=== PATIENT | female | born 1950 | race Caucasian/White ===

== ENCOUNTER 2017-12-23 06:55 | Day surgery (SDC) | payer OTHER ==
[2017-12-23] MEDS: DUOVISC 1 KIT OPTH ONE ×2 (07:00→08:41)
[2017-12-23] MEDS ORDERED: BUPIVACAINE 0.25% PF 10 ML VIAL ONE (07:13)
[2017-12-23] MEDS ORDERED: TETRACAINE HCL 0.5% 2ML OPTH ONE ×2 (07:13→07:17)
[2017-12-23] MEDS ORDERED: LIDOCAINE 2% MPF 5 ML VIAL ONE (07:13)
[2017-12-23] MEDS ORDERED: CYCLOPENTOLATE 1% OPTH 2 ML ONE (07:13)
[2017-12-23] MEDS ORDERED: NA CHLORIDE 0.9% 500 ML ONE (07:13)
[2017-12-23] MEDS ORDERED: PHENYLEPHRINE 10% OPTH 5ML ONE (07:15)
[2017-12-23] MEDS ORDERED: LIDOCAINE HCL/PF 3.5% OPTH GEL ONE (07:15)
[2017-12-23] MEDS ORDERED: NS 0.9% VIAL 10 ML ONE (07:59)
[2017-12-23] MEDS ORDERED: EPINEPHRINE/PF 1 MG/ML AMP ONE (08:00)
[2017-12-23] MEDS ORDERED: BALANCED SALT IRRIG PLAIN 500 ML BTL IRR ONE (08:00)
[2017-12-23] MEDS ORDERED: LIDOCAINE 1% MPF 2 ML AMPULE ONE (08:02)
[2017-12-23] MEDS ORDERED: MOXIFLOXACIN HCL 10 DROPS/ML **OR USE OPTH ONE (08:02)
[2017-12-23] MEDS ORDERED: FENTANYL CITR 100 MCG/2 ML ONE (08:05)
[2017-12-23] MEDS ORDERED: MIDAZOLAM HCL 2 MG/2 ML INJ ONE (08:06)
--- NOTE | 2017-12-23 09:18 | P.BOP ---
Preoperative diagnosis: Nuclear sclerotic cataract OS Postoperative diagnosis: Same Primary procedure: Phacoemulsification with IOL OS Estimated blood loss: None Anesthesia: Local (Topical with anesthesia for cataract surgery) Complications: None Implants: ZCB00 +18.0 Transferred to: Other (Day surgery) Condition: Good
--- NOTE | 2017-12-23 14:22 | OP ---
Date of Procedure: 12/23/2017 Surgeon: Lorraine Gomez MD Anesthesiologist: Antonette Crowley CRNA, and Antelmo Connolly M.D. Preoperative Diagnosis: Nuclear sclerotic cataract, OS (left eye). Operation Performed: Phacoemulsification with intraocular lens implant, OS ( left eye). Anesthesia: Per cataract surgery. Complications: None. Description Of Procedure: In the operating room the patient was prepped and draped in the usual sterile fashion for ophthalmic surgery. A lid speculum was placed in the left eye. Two paracentesis sites were made superiorly and inferiorly in the limbal cornea. Viscoat was placed in the anterior chamber and a crescent blade was used to make a corneal groove and tunnel, and a keratome was used to enter the anterior chamber. Provisc was placed in the anterior chamber and a 360 degree capsulotomy was performed with a cystitome. The lens was hydrodissected with BSS and rotated freely. The lens was removed with a stop and chop technique. A 19.65 phaco CDE was used to remove the lens. Residual cortex was removed with the irrigation and aspiration. Provisc was placed in the capsular bag. A ZCB00 +18.0 diopter lens was placed in the capsular bag without complications. Irrigation and aspiration were used to remove residual viscoelastic. The paracentesis sites were hydrated with BSS. The wound and paracentesis sites were inspected and found to be watertight. Vigamox 0.07 cc was placed intracamerally at the end of the procedure. The eye was irrigated with balanced salt solution. The eye was patched with a soft cotton patch and Root metal shield. The patient was returned to day surgery in good condition. Comments: Akten was placed in the eye in Day Surgery and irrigated out of the eye with BSS in the OR. Preservative free 1% lidocaine was placed in the anterior chamber prior to Viscoat. Discharge Instructions: Ms. Chatterjee is discharged to home in good condition and is to follow up with Dr. Gomez in the morning. AIDAN/CUONG Voice ID: [id number] Report ID: [id number] DONNELL
== END 2017-12-23 09:47 | disposition home or self-care (01) ==
LOC: OR 06:55
PROVIDERS: ATTEND Ophthalmology Retina Specialist
PROC: 08RK3JZ Replacement of Left Lens with Synthetic Substitute, Percutaneous Approach (ICD-10-PCS; principal; 2017-12-23 08:30)
DX: H25.12 Age-related nuclear cataract, left eye (principal); Z83.518 Family history of other specified eye disorder; Z82.49 Family history of ischemic heart disease and other diseases of the circulatory system
CPT/HCPCS: 66984; J0171; J2001; J2250; J3010

== ENCOUNTER 2018-03-24 08:45 | Day surgery (SDC) | payer OTHER ==
[2018-03-24] MEDS ORDERED: NS 0.9% VIAL 10 ML ONE (09:04)
[2018-03-24] MEDS ORDERED: MOXIFLOXACIN HCL 10 DROPS/ML **OR USE OPTH ONE (09:05)
[2018-03-24] MEDS ORDERED: BALANCED SALT IRRIG PLAIN 500 ML BTL IRR ONE (09:05)
[2018-03-24] MEDS ORDERED: EPINEPHRINE/PF 1 MG/ML AMP ONE (09:05)
[2018-03-24] MEDS ORDERED: DUOVISC 1 KIT OPTH ONE (09:05)
[2018-03-24] MEDS ORDERED: LIDOCAINE 1% MPF 2 ML AMPULE ONE (09:05)
[2018-03-24] MEDS ORDERED: BUPIVACAINE 0.25% PF 10 ML VIAL ONE (09:09)
[2018-03-24] MEDS ORDERED: NA CHLORIDE 0.9% 500 ML ONE (09:09)
[2018-03-24] MEDS ORDERED: PHENYLEPHRINE 10% OPTH 5ML ONE (09:09)
[2018-03-24] MEDS ORDERED: LIDOCAINE HCL/PF 3.5% OPTH GEL ONE (09:09)
[2018-03-24] MEDS ORDERED: TETRACAINE HCL 0.5% 2ML OPTH ONE (09:09)
[2018-03-24] MEDS ORDERED: LIDOCAINE 2% MPF 5 ML VIAL ONE (09:09)
[2018-03-24] MEDS ORDERED: CYCLOPENTOLATE 1% OPTH 2 ML ONE (09:09)
[2018-03-24] MEDS ORDERED: PHENYLEPHRINE 10% OPTH 5ML OPTH ONE ×2 (09:23→09:28)
[2018-03-24] MEDS ORDERED: CYCLOPENTOLATE 1% OPTH 2 ML OPTH ONE ×2 (09:23→09:28)
[2018-03-24] MEDS ORDERED: FENTANYL CITR 100 MCG/2 ML ONE (10:16)
[2018-03-24] MEDS ORDERED: MIDAZOLAM HCL 2 MG/2 ML INJ ONE (10:16)
--- NOTE | 2018-03-24 11:13 | P.BOP ---
Preoperative diagnosis: Nuclear sclerotic cataract OD Postoperative diagnosis: Same Primary procedure: Phacoemulsification with IOL OD Estimated blood loss: None Anesthesia: Local (Topical with anesthesia for cataract surgery) Complications: None Implants: ZCB00 +18.0 Transferred to: Other (Day surgery) Condition: Good
--- NOTE | 2018-03-24 11:32 | OP ---
Date of Procedure: 03/24/2018 Surgeon: Lorraine Gomez MD Anesthesiologist: 1. oJsé Antonio Bernal C.R.N.A. 2. Nader Connolly M.D. Preoperative Diagnosis: Nuclear sclerotic cataract, right eye. Operation Performed: Phacoemulsification with intraocular lens implant, right eye. Anesthesia: Per cataract surgery. Complications: None. Description Of Procedure: In the operating room the patient was prepped and draped in the usual sterile fashion for ophthalmic surgery. A lid speculum was placed in the right eye. Two paracentesis sites were made superiorly and inferiorly in the limbal cornea. Viscoat was placed in the anterior chamber and a crescent blade was used to make a corneal groove and tunnel, and a keratome was used to enter the anterior chamber. Provisc was placed in the anterior chamber and a 360 degree capsulotomy was performed with a cystitome. The lens was hydrodissected with BSS and rotated freely. The lens was removed with a stop and chop technique. 18.86 phaco CDE was used to remove the lens. Residual cortex was removed with the irrigation and aspiration. Provisc was placed in the capsular bag. A ZCB00 +18.0 diopter lens was placed in the capsular bag without complications. Irrigation and aspiration was used to remove residual viscoelastic. The paracentesis sites were hydrated with BSS. The wound and paracentesis sites were inspected and found to be watertight. Vigamox 0.07 cc was placed intracamerally at the end of the procedure. The eye was irrigated with balanced salt solution. The eye was patched with a soft cotton patch and Root metal shield. The patient was returned to day surgery in good condition. Comments: Akten was placed in the eye in Day surgery and irrigated out of the eye with BSS in the OR. Preservative free 1% lidocaine was placed in the eye prior to Viscoat. Discharge Instructions: Ms. Chatterjee is discharged to home in good condition and is to follow up with Dr. Gomez in the morning. AIDAN/CUONG Voice ID: [id number] Report ID: [id number] DONNELL
== END 2018-03-24 11:43 | disposition home or self-care (01) ==
LOC: OR 08:45
PROVIDERS: ATTEND Ophthalmology Retina Specialist
PROC: 08RJ3JZ Replacement of Right Lens with Synthetic Substitute, Percutaneous Approach (ICD-10-PCS; principal; 2018-03-24 10:00)
DX: H25.11 Age-related nuclear cataract, right eye (principal); H40.031 Anatomical narrow angle, right eye; Z83.518 Family history of other specified eye disorder; Z82.49 Family history of ischemic heart disease and other diseases of the circulatory system
CPT/HCPCS: 66984; J0171; J2001; J2250; J3010

== ENCOUNTER 2023-12-08 18:24 | Emergency (ER) | payer OTHER ==
[2023-12-08 19:20] LABS: Absolute Basophils 0.1 K/uL (0-0.5); Absolute Eosinophils 0.3 K/uL (0-0.5); Absolute Lymphocytes (CBC) 2.3 K/uL (0.7-4.9); Absolute Monocytes 0.7 K/uL (0.1-1.3); Absolute Neutrophil 3.3 K/uL (1.8-8.0); Basophils % 1.4 % (0-1.3); Eosinophils % 4.7 % (0-4.4); Hematocrit 41.7 % (36.0-45.0); Hemoglobin 13.8 g/dL (12.0-15.0); MPV 8.6 fL (7.6-11.3); Monocytes % 10.7 % (3.3-12.3); Neutrophils % 49.2 % (41.7-73.7); Platelets 302 thou/uL (152-406); RBC Red Blood Cell Count 4.44 M/uL (3.86-4.86); Red Cell Distribution Width 12.8 % (12.1-15.2)
[2023-12-08 19:29] LABS: Anion Gap 7.1 mEq/L (5.0-15.0); Magnesium 2.2 mg/dL (1.6-2.4); Potassium 4.1 mEq/L (3.5-5.1); Thyroid Stimulating Hormone 1.99 uIU/mL (0.358-3.740); Troponin High Sensitivity 4.5 pg/mL (<58.9)
--- NOTE | 2023-12-08 20:04 | RAD REPORT ---
EXAM DESCRIPTION: RAD - Chest Single View - 12/08/2023 7:58 pm CLINICAL HISTORY: PALPITATIONS COMPARISON: CHEST SINGLE VIEW dated 08/07/2013; CHEST SINGLE VIEW dated 04/19/2011 FINDINGS: Lines: None. Lungs: Irregular right upper lobe nodular opacities. No acute process identified. Emphysema. Pleural: No significant pleural effusions or pneumothorax. Cardiac: The heart size is within normal limits. Mediastinum: Within normal limits. Bones: No acute fractures. Other: None IMPRESSION: No acute cardiopulmonary disease. Emphysema. Irregular right upper lobe nodular opacities. Recommend nonemergent chest CT.
--- NOTE | 2023-12-08 20:31 | ER ---
Nurse's Notes [facility] Name: Samantha Chatterjee Age: 73 yrs Sex: Female : 1950 Arrival Date: 12/08/2023 Time: 18:24 Bed 3 Private MD: Diagnosis: Palpitations;Tachycardia, unspecified Presentation: 12/07 18:34 Chief complaint: Patient states: High BP and elevated HR Since last night. Coronavirus ll1 screen: Client denies travel out of the [place] in the last 14 days. At this time, the client does not indicate any symptoms associated with coronavirus-19. Ebola Screen: Patient denies travel to an Ebola-affected area in the 21 days before illness onset. Initial Sepsis Screen: Does the patient meet any 2 criteria? No. Patient's initial sepsis screen is negative. Does the patient have a suspected source of infection? No. Patient's initial sepsis screen is negative. Risk Assessment: Do you want to hurt yourself or someone else? Patient reports no desire to harm self or others. Onset of symptoms was December 07, 2023. 18:34 Method Of Arrival: Ambulatory ll1 18:34 Acuity: CHRISTINA 2 ll1 Triage Assessment: 18:35 General: Appears uncomfortable, Behavior is calm, cooperative, appropriate for age. ll1 Pain: Denies pain. Cardiovascular: Reports chest pain, high BP. Historical: - Allergies: 18:34 No Known Allergies; ll1 - PMHx: 18:34 bleeding ulcer; ll1 - PSHx: 18:34 section; ll1 - Immunization history:: Adult Immunizations up to date. - Infectious Disease History:: Denies. - Social history:: Smoking status: Patient denies any tobacco usage or history of. Screenin:[facility] ED Fall Risk Assessment (Adult) History of falling in the last 3 months, ld1 including since admission No falls in past 3 months (0 pts). Abuse screen: Denies threats or abuse. Denies injuries from another. Abuse screen: Denies threats or abuse. Nutritional screening: No deficits noted. Tuberculosis screening: No symptoms or risk factors identified. Assessment: 18:48 General: Appears in no apparent distress. comfortable, Behavior is calm, cooperative, ld1 appropriate for age. Pain: Denies pain. Neuro: Level of Consciousness is awake, alert, obeys commands, Oriented to person, place, time, situation. Cardiovascular: Capillary refill < 3 seconds Patient's skin is warm and dry. Rhythm is sinus rhythm. Respiratory: Airway is patent Respiratory effort is even, unlabored. GI: Abdomen is round non-distended. : No signs and/or symptoms were reported regarding the genitourinary system. EENT: No signs and/or symptoms were reported regarding the EENT system. Derm: No signs and/or symptoms reported regarding the dermatologic system. 19:14 Reassessment: Patient appears in no apparent distress at this time. Patient and/or bm8 family updated on plan of care and expected duration. Pain level reassessed. Patient is alert, oriented x 3, equal unlabored respirations, skin warm/dry/pink. Patient denies pain at this time. Patient states feeling better. Patient states symptoms have improved. Cardiovascular: Heart tones S1 S2 present Capillary refill < 3 seconds Patient's skin is warm and dry. Rhythm is sinus rhythm. Respiratory: Airway is patent Respiratory effort is even, unlabored, Respiratory pattern is regular, symmetrical, Breath sounds are clear bilaterally. 20:50 Reassessment: Patient appears in no apparent distress at this time. Patient and/or bm8 family updated on plan of care and expected duration. Pain level reassessed. Patient is alert, oriented x 3, equal unlabored respirations, skin warm/dry/pink. Patient denies pain at this time. Patient states feeling better. Patient states symptoms have improved. Vital Signs: 18:34 BP 140 / 83; Pulse 109; Resp 16; Temp 98.1; Pulse Ox 97% ; Weight 58.97 kg; Height 5 ll1 ft. 6 in. ; 18:48 BP 151 / 85; Pulse 98; Resp 18; Pulse Ox 100% on R/A; ld1 19:14 BP 142 / 79; Pulse 79; Resp 20; Pulse Ox 100% ; Pain 0/10; lg3 20:50 BP 114 / 86; Pulse 87; Resp 16; Temp 98.1; Pulse Ox 100% ; Pain 0/10; bm8 18:34 Body Mass Index 20.98 (58.97 kg, 167.64 cm) ll1 19:14 Pain Scale: Adult lg3 20:50 Pain Scale: Adult bm8 [place] Coma Score: 19:14 Eye Response: spontaneous(4). Motor Response: obeys commands(6). Verbal Response: bm8 oriented(5). Total: 15. ED Course: 18:27 Patient arrived in ED. mr 18:33 Rene Messian, RN is Primary Nurse. bp 18:34 Arm band placed on Patient placed in an exam room, on a stretcher. ll1 18:35 Farzana Walters F[facility]-C [facility]. kb 18:35 Shemar South MD is Attending Physician. kb 18:35 Triage completed. ll1 18:48 Patient has correct armband on for positive identification. Placed in gown. Bed in low ld1 position. Call light in reach. Side rails up X2. black pickler on. Pulse ox on. NIBP on. Door closed. Noise minimized. Warm blanket given. 18:48 No provider procedures requiring assistance completed. ld1 18:52 Inserted saline lock: 20 gauge in right antecubital area, using aseptic technique. ld1 Blood collected. 19:14 Report received from abner orozco. bm8 19:14 IV is patent. bm8 20:00 XRAY Chest (1 view) In Process Unspecified. EDMS 20:50 Provided Education on: post er care, need to follow up with pcp/ trolley collector. bm8 20:50 IV discontinued, intact, bleeding controlled, No redness/swelling at site. Pressure bm8 dressing applied. Administered Medications: No medications were administered Medication: 18:48 VIS not applicable for this client. ld1 Outcome: 20:31 Discharge ordered by MD. kb 20:50 Discharged to home ambulatory, bm8 20:50 Condition: stable 20:50 Discharge instructions given to patient, family, Instructed on discharge instructions, follow up and referral plans. medication usage, safety practices, Demonstrated understanding of instructions, follow-up care, medications, 20:51 Patient left the ED. bm8 Signatures: Dispatcher [employer] EDMS Farzana Walters FNP-C FNP-[place] Connie Rodríguez, Reg Reg Rene Messina, RN Georgette Pfeiffer RN RN [id number] Ara Cormier RN RN ll1 Sofi Washington RN RN ld1 Wagner Garcia RN RN bm8 Corrections: (The following items were deleted from the chart) 18:34 18:34 PMHx: None; ll1 ll1 20:06 19:14 BP 92 / 142; Pulse 79bpm; Resp 20bpm; Pulse Ox 100%; Pain 0/10, Adult; bm8 lg3
--- NOTE | 2023-12-08 20:31 | EDPHYS ---
Physician Documentation [facility] Name: Samantha Chatterjee Age: 73 yrs Sex: Female : 1950 Arrival Date: 12/08/2023 Time: 18:24 Bed 3 Private MD: ED Physician Shemar South HPI: 12/07 20:36 This 73 yrs old Female presents to ER via Ambulatory with complaints of High heart kb rate, High Blood Pressure. 20:36 Patient is a 73-year-old female who presents for palpitations, elevated heart rate and kb elevated blood pressure that started last night. States her smart watch alarmed saying that she had a fast heart rate last night and then she started feeling palpitations. States she has been checking her blood pressure and heart rate throughout the day and it has been elevated. States she has a history of a bleeding ulcer many years ago that caused her to be anemic and not see only other time that she is ever had a fast heart rate. Denies history of hypertension. States only medications she takes are vitamins. Denies chest pain or shortness of breath. Historical: - Allergies: 18:34 No Known Allergies; ll1 - PMHx: 18:34 bleeding ulcer; ll1 - PSHx: 18:34 section; ll1 - Immunization history:: Adult Immunizations up to date. - Infectious Disease History:: Denies. - Social history:: Smoking status: Patient denies any tobacco usage or history of. ROS: 20:34 Constitutional: As per HPI kb Exam: 20:34 Constitutional: This is a well developed, well nourished patient who is awake, alert, kb and in no acute distress. Head/Face: Normocephalic, atraumatic. ENT: Moist Mucous membranes Cardiovascular: Tachycardic Respiratory: Respirations even and unlabored. No increased work of breathing. Talking in full sentences Abdomen/GI: Soft, non-tender. No distention Skin: Warm, dry with normal turgor. Normal color. MS/ Extremity: Pulses equal, no cyanosis. Neurovascular intact. Full, normal range of motion. Neuro: Awake and alert, GCS 15, oriented to person, place, time, and situation. Moves all extremities. Normal gait. 20:34 ECG was reviewed by the Attending Physician. Vital Signs: 18:34 BP 140 / 83; Pulse 109; Resp 16; Temp 98.1; Pulse Ox 97% ; Weight 58.97 kg; Height 5 ll1 ft. 6 in. ; 18:48 BP 151 / 85; Pulse 98; Resp 18; Pulse Ox 100% on R/A; ld1 19:14 BP 142 / 79; Pulse 79; Resp 20; Pulse Ox 100% ; Pain 0/10; lg3 20:50 BP 114 / 86; Pulse 87; Resp 16; Temp 98.1; Pulse Ox 100% ; Pain 0/10; bm8 18:34 Body Mass Index 20.98 (58.97 kg, 167.64 cm) ll1 19:14 Pain Scale: Adult lg3 20:50 Pain Scale: Adult bm8 [place] Coma Score: 19:14 Eye Response: spontaneous(4). Motor Response: obeys commands(6). Verbal Response: bm8 oriented(5). Total: 15. MDM: 18:35 Patient medically screened. kb 20:35 Differential diagnosis: Arrhythmia, anemia, abnormal electrolytes. Data reviewed: vital kb signs, nurses notes. Counseling: I had a detailed discussion with the patient and/or guardian regarding the historical points, exam findings, and any diagnostic results supporting the discharge/admit diagnosis, lab results, radiology results, the need for outpatient follow up, a orchestrator, a family practitioner, to return to the emergency department if symptoms worsen or persist or if there are any questions or concerns that arise at home. ED course: Blood pressures come down without intervention as well as heart rate. Patient has no symptoms at this time. Patient denies ever having chest pain, shortness of breath. Educated on need for follow-up with PCP or orchestrator for further evaluation. 20:42 ED course: At bedside to reassess patient. Patient remains awake, alert and at baseline kb mentation. Patient appears stable. Patient exhibits no visible signs of distress. Patient respirations even and unlabored. I discussed patient's diagnosis, differential diagnosis, expected course of illness, at home recommendations and strict return precautions. I advised patient to follow-up with PCP in 2 to 3 days. I explained all diagnostic results with the patient and answered all questions that patient had regarding the most likely diagnosis. I emphasized the need for close outpatient follow-up and care from primary care provider/specialist and went through careful and detailed return precautions with patient. Patient expressed full understanding of such and agrees with plan for discharge today. Feel patient is stable and appropriate for discharge and ongoing management of condition at home at this time.. 12/07 18:43 Order name: Basic Metabolic Panel; Complete Time: 19:31 kb 12/07 18:43 Order name: CBC with Diff; Complete Time: 19:27 kb 12/07 18:43 Order name: Magnesium; Complete Time: 19:31 kb 12/07 18:43 Order name: Troponin HS; Complete Time: 19:31 kb 12/07 18:43 Order name: TSH; Complete Time: 19:31 kb 12/07 18:43 Order name: XRAY Chest (1 view); Complete Time: 20:06 kb 12/07 18:43 Order name: Cardiac monitoring; Complete Time: 18:44 kb 12/07 18:43 Order name: EKG - Nurse/Tech; Complete Time: 18:43 kb 12/07 18:43 Order name: IV Saline Lock; Complete Time: 18:52 kb 12/07 18:43 Order name: Labs collected and sent; Complete Time: 18:52 kb 12/07 18:43 Order name: O2 Per Protocol; Complete Time: 18:43 kb 12/07 18:43 Order name: O2 Sat Monitoring; Complete Time: 18:43 kb EC:34 Rate is 102 beats/min. Rhythm is regular. QRS [place] is Normal. [place] interval is normal at kb 158 msec. QRS interval is normal at 86 msec. QT interval is normal at 466 msec. Administered Medications: No medications were administered Disposition Summary: 12/08/23 20:31 Discharge Ordered Notes: Location: Home kb Condition: Stable kb Diagnosis - Palpitations kb - Tachycardia, unspecified kb Followup: kb - With: Emergency Department - When: As needed - Reason: Worsening of condition Followup: kb - With: Private Physician - When: 2 - 3 days - Reason: Recheck today's complaints, Continuance of care, Re-evaluation by your physician Discharge Instructions: - Discharge Summary Sheet kb - Palpitations, [id number] kb Forms: - Medication Reconciliation Form kb - Thank You Letter kb - Antibiotic Education kb - Prescription Opioid Use kb - Patient Portal Instructions kb - Leadership Thank You Letter kb Signatures: Dispatcher [employer] Farzana Ji, CARSON-C CARSON-Ara Jacinto RN RN ll1 Corrections: (The following items were deleted from the chart) 18:34 18:34 PMHx: None; ll1 ll1 18:43 18:43 BASIC METABOLIC PANEL+C.LAB.BRZ ordered. EDMS EDMS 18:43 18:43 CBC+H.LAB.BRZ ordered. EDMS EDMS 18:43 18:43 MAGNESIUM+C.LAB.BRZ ordered. EDMS EDMS 18:43 18:43 Troponin High Sensitivity+C.LAB.BRZ ordered. EDMS EDMS 18:43 18:43 THYROID STIMULAT HORMONE+C.LAB.BRZ ordered. EDMS EDMS 18:43 18:43 Chest Single View+RAD.RAD.BRZ ordered. EDMS EDMS
[2023-12-08 21:40] VITALS: BP 114/86; TEMP 98.1; O2SAT 100
== END 2023-12-08 20:51 | disposition home or self-care (01) ==
LOC: ER 18:24
DX: R00.0 Tachycardia, unspecified (principal)
CPT/HCPCS: 36415; 71045; 80048; 83735; 84443; 84484; 85025; 93005; 99284